=== PATIENT | male | born 1980 | race Caucasian/White ===

== ENCOUNTER 2020-10-17 22:42 | Emergency (ER) | payer BC, OTHER ==
[~2020-10-17] VITALS: Ht 165.1 cm; Wt 79.4 kg
[2020-10-17 22:53] VITALS: BP 131/70
[2020-10-17] MEDS ORDERED: LIDOCAINE/EPI 1% 1:100000 20 ML VIAL INJ ONE (23:05)
[2020-10-17] MEDS ORDERED: BACITRACIN OINT 500 UNITS/GM PKT TP ONE (23:30)
[2020-10-17 23:40] VITALS: BP 131/70
== END 2020-10-17 23:40 | disposition home or self-care (01) ==
LOC: MED 22:42
DX: S51.812A Laceration without foreign body of left forearm, initial encounter (principal); F17.210 Nicotine dependence, cigarettes, uncomplicated; Y04.0XXA Assault by unarmed brawl or fight, initial encounter; Y93.89 Activity, other specified; Y92.89 Other specified places as the place of occurrence of the external cause; Y99.8 Other external cause status
CPT/HCPCS: 12002; 90471; 90715; 99283; J2001

== ENCOUNTER 2020-10-24 08:55 | Emergency (ER) | payer BC, OTHER ==
[~2020-10-24] VITALS: Ht 165.1 cm; Wt 87.1 kg
[2020-10-24 08:58] VITALS: BP 149/85
--- NOTE | 2020-10-24 09:03 | NUR ---
PT AMBULATED TO ER BED 7.
--- NOTE | 2020-10-24 09:10 | NUR ---
PT CAME IN FOR WOUND RECHECK. PT HAD LACERATION TO LEFT FOREARM, WAS SUTURED IN ED LAST Saturday10/17/20. PT DENIES PAIN AT THIS MOMENT, STATED ONLY FEELING PAIN AND NAUSEA WHEN WOUND IS PRESSED OR TOUCHED. MINIMAL SWELLING NOTED TO THE SITE. SUTURE INTACT, WOUND IS CLEAN, OPEN TO AIR. DENIES ANY PMH AND ALLERGIES.
[2020-10-24 09:27] VITALS: BP 149/85
--- NOTE | 2020-10-24 09:28 | NUR ---
Patient discharged with v/s stable. Written and verbal after care instructions given and explained. Patient verbalized understanding. Ambulatory with steady gait. All questions addressed prior to discharge. Advised to follow up with PMD.
== END 2020-10-24 09:28 | disposition home or self-care (01) ==
LOC: MED 08:55
DX: S51.812D Laceration without foreign body of left forearm, subsequent encounter (principal); R03.0 Elevated blood-pressure reading, without diagnosis of hypertension; F17.290 Nicotine dependence, other tobacco product, uncomplicated; X58.XXXD Exposure to other specified factors, subsequent encounter
CPT/HCPCS: 99281